=== PATIENT | male | born 1965 ===

== ENCOUNTER 2024-04-19 06:00 | Day surgery (SDC) | payer OTHER ==
[2024-04-13 10:13] VITALS: BP 140/88
[~2024-04-19] VITALS: Ht 162.6 cm; Wt 59.0 kg
[~2024-04-19 06:00] MED LIST: CARVEDILOL6.25 MG; ENALAPRIL MALE2.5 MG PO; HORIZANT300 MG PO; NAPROXEN250 MG PO; PROTONIX20 MG PO
[2024-04-19] MEDS ORDERED: METRONIDAZOLE/SODIUM CHLORIDE 500 MG/100 ML PIGGYBACK IV ONE (08:11)
[2024-04-19] MEDS ORDERED: CEFTRIAXONE SODIUM 2,000 MG VIAL ONE (08:11)
[2024-04-19] MEDS ORDERED: HEMOSTATIC MATRIX 1 KIT KIT TOP ONE (11:20)
[2024-04-19] MEDS ORDERED: BUPIVACAINE HCL/Mpf 0.5% 10ML VIAL ONE (11:20)
[2024-04-19] MEDS ORDERED: DIBUCAINE 30 GM TUBE ONE (11:20)
[2024-04-19] MEDS ORDERED: POVIDONE-IODINE 118 ML BOTT TOP ONE (11:20)
[2024-04-19] MEDS ORDERED: LIDOCAINE HCL 1%/EPINEPHRINE 20ML VIAL IJ ONE (11:20)
== END 2024-04-19 17:50 | disposition home or self-care (01) ==
LOC: CIR.AMB 06:00
PROVIDERS: ATTEND Colon & Rectal Surgery
DX: K64.2 Third degree hemorrhoids (principal); K64.4 Residual hemorrhoidal skin tags; K92.1 Melena; I10 Essential (primary) hypertension; E78.00 Pure hypercholesterolemia, unspecified; K59.00 Constipation, unspecified; G43.909 Migraine, unspecified, not intractable, without status migrainosus; K21.9 Gastro-esophageal reflux disease without esophagitis